=== PATIENT | female | born 1960 | race Caucasian/White ===

== ENCOUNTER → 2017-09-25 16:10 | Outpatient (CLI) | payer MEDICAID | END | disposition home or self-care (01) | LOC: D.RAD 09-03 10:00 | DX: M54.6 Pain in thoracic spine (principal) ==

== ENCOUNTER 2018-06-01 21:12 | Emergency (ER) | payer MEDICAID ==
[~2018-06-01] VITALS: Ht 154.9 cm; Wt 47.3 kg
[2018-06-01 22:06] VITALS: BP 119/79; Ht 154.9 cm; Wt 47.3 kg
[2018-06-01] MEDS ORDERED: ANTIDEPRESSANT (22:08)
[2018-06-01] MEDS ORDERED: PRINIVIL10 MG PO (22:09)
== END 2018-06-02 02:00 | disposition left against medical advice (07) ==
LOC: D.ER 21:12
DX: T14.8XXA Other injury of unspecified body region, initial encounter (principal); Y04.2XXA Assault by strike against or bumped into by another person, initial encounter; Y93.89 Activity, other specified; Y92.89 Other specified places as the place of occurrence of the external cause

== ENCOUNTER → 2019-01-10 14:45 | Outpatient (CLI) | payer MEDICAID ==
[2018-06-01 22:06] VITALS: BMI 19.7
[~2019-01-10 14:45] MED LIST: ANTIDEPRESSANT; PRINIVIL10 MG PO
== END | disposition home or self-care (01) ==
LOC: D.RAD 14:45
DX: R09.02 Hypoxemia (principal); J44.9 Chronic obstructive pulmonary disease, unspecified